=== PATIENT | female | born 1990 | race Caucasian/White ===

== ENCOUNTER 2016-09-23 22:23 | Emergency (ER) | payer MEDICAID ==
[2016-09-23 22:26] VITALS: BP 125/77; PULSE 78; RESP 16; TEMP 97.9; O2SAT 100
== END 2016-09-23 23:25 | disposition left against medical advice (07) ==
LOC: NED 22:23
DX: R21 Rash and other nonspecific skin eruption (principal); Z53.21 Procedure and treatment not carried out due to patient leaving prior to being seen by health care provider
CPT/HCPCS: 99281